=== PATIENT | male | born 1995 | race African-American/Black ===

== ENCOUNTER 2021-07-20 17:16 | Emergency (ER) | payer OTHER ==
[~2021-07-20] VITALS: Ht 180.3 cm; Wt 133.8 kg
[~2021-07-20 17:16] MED LIST: AZITHROMYCIN 2250 MG PO; IBUPROFEN 800800 M1 PO; NOHOMEMEDICATIONS; NORCO 5-325 TA1 EACH PO; PROMETHAZINE-D120 ML PO
[2021-07-20] MEDS ORDERED: DULOXETINE HCL60 MG PO (17:56)
[2021-07-20 18:41] LABS: ABSOLUTE LYMPHOCYTES 1.7 thou/uL (0.8-5.3); ABSOLUTE MONOCYTES 0.8 thou/uL (0.0-1.2); ABSOLUTE NEUTROPHILS 4.4 thou/uL (1.6-8.1); BASOPHILS 0.4 %; EOSINOPHILS 0.5 %; HEMATOCRIT 44.1 % (42.0-52.0); HEMOGLOBIN 15.1 gm/dL (14.0-18.0); LYMPHOCYTES 24.3 %; MCHC 34.2 g/dL (28.0-37.0); MCV 87.7 fL (80.0-100.0); MONOCYTES 11.7 %; MPV 8.1 fl. (7.2-11.1); NUCLEATED RBCS 0 /100WBC; PLATELET COUNT* 344 thou/uL (150-400); POLYS 63.1 %; RBC 5.03 mil/uL (4.50-6.00); RDW-CV 13.3 % (10.5-14.5)
[2021-07-20 18:46] LABS: CALCIUM 8.8 mg/dL (8.5-10.1); CREATININE 1.1 mg/dL (0.6-1.3); POTASSIUM 3.7 mmol/L (3.5-5.1)
[2021-07-20 18:51] LABS: ALBUMIN 3.9 g/dL (3.4-5.0); TOTAL BILIRUBIN 0.6 mg/dL (<0.1-1.0); TOTAL PROTEIN 7.5 g/dL (6.4-8.2)
[2021-07-20 20:04] LABS: URINE BILIRUBIN NEGATIVE (Negative); URINE BLOOD NEGATIVE (Negative); URINE CLARITY CLEAR; URINE COLOR YELLOW; URINE GLUCOSE-RANDOM NEGATIVE (Negative); URINE KETONES NEGATIVE (Negative); URINE LEUKOCYTES-REFLEX NEGATIVE (Negative); URINE NITRITE-REFLEX NEGATIVE (Negative); URINE PROTEIN NEGATIVE (Negative); URINE SPECIFIC GRAVITY 1.015 (1.005-1.030); URINE UROBILINOGEN 0.2 E.U./dl (0.2-1.0)
[2021-07-20 20:12] LABS: AMP/METHAMP Negative (Negative); BARBITURATES Negative (Negative); BENZODIAZEPINES Negative (Negative); COCAINE Negative (Negative); METHADONE Negative (Negative); OPIATES Negative (Negative); PCP Negative (Negative); THC Negative (Negative)
[2021-07-20 20:33] VITALS: BP 119/74
--- NOTE | 2021-07-21 17:25 | EKG ---
[place] [address] ELECTROCARDIOGRAM REPORT Name: MELLY STEWART [facility] [id number] Admission: 07/20/21 Attend Phys: Discharge: 07/20/21 Date of : 89 Date of Service: 07/20/211910 Report #: [id number] THIS REPORT FOR: //name// [facility] ED Test Date: 2021-07-20 Test Time: 19:11:12 Pat Name: MELLY STEWART Department: Room: Gender: Multimedia Coordinator: [place] : 1995 Requested By: Anabella Melendez Order Number: [id number] MD: Angelo Estrada Measurements Intervals [place] Rate: 53 P: 35 OR: 174 QRS: 0 QRSD: 98 T: 14 QT: 432 QTc: 406 Interpretive Statements Sinus rhythm No previous ECG available for comparison Electronically Signed On 07-21-2021 17:24:59 CDT by Angelo Estrada [email or web address] <ELECTRONICALLY SIGNED> By: Angelo Estrada MD, [facility] 07/21/211723 10 10 Angelo Estrada MD, FACC /EPI
== END 2021-07-20 20:34 | disposition home or self-care (01) ==
LOC: M.ERS 17:16
PROVIDERS: Physician Assistant
DX: R55 Syncope and collapse (principal)